=== PATIENT | female | born 1975 | race African-American/Black ===

== ENCOUNTER 2018-01-08 07:45 | Observation (INO) ==
[2018-01-08] MEDS ORDERED: ASPIRIN ONE (08:03)
[2018-01-08] MEDS ORDERED: NITROSTAT SL ONE (08:03)
[2018-01-08] MEDS: ASPIRIN PO SCH (08:10)
[2018-01-08] MEDS: NITROSTAT SL PRN ×3 (08:13→08:22)
--- NOTE | 2018-01-08 08:19 | RAD ---
HISTORY: Right-sided chest pain that started this morning. Study: AP portable chest Comparison: None Findings: The lungs are clear. The heart size is normal. No acute bony abnormalities are identified. IMPRESSION: 1. No radiographic evidence of acute cardiopulmonary disease. Reported By:
[2018-01-08 08:23] LABS: BASOPHILS # (AUTO) 0.1 X10^3/uL (0.0-0.1); BASOPHILS % (AUTO) 1.5 % (0.2-1.0); EOSINOPHILS # (AUTO) 0.1 x10^3/uL (0.0-0.2); EOSINOPHILS % (AUTO) 2.7 % (0.9-2.9); HEMATOCRIT 35.9 % (36.0-47.0); HEMOGLOBIN 11.5 g/dL (12.0-16.0); LYMPHOCYTES # (AUTO) 2.3 X10^3/uL (1.3-2.9); LYMPHOCYTES % (AUTO) 40.7 % (21.0-51.0); MEAN CORPUSCULAR HEMOGLOBIN 22.2 pg (27.0-34.0); MEAN CORPUSCULAR VOLUME 69.3 fL (80.0-100.0); MEAN PLATELET VOLUME 9.9 fL (7.4-11.0); MONOCYTES # (AUTO) 0.5 x10^3/uL (0.3-0.8); MONOCYTES % (AUTO) 8.6 % (0.0-13.0); NEUTROPHILS # (AUTO) 2.6 x10^3/uL (2.2-4.8); NEUTROPHILS % (AUTO) 46.5 % (42.0-75.0); PLATELET COUNT 242 X10^3/uL (150.0-450.0); RED BLOOD COUNT 5.18 X10^6/uL (3.5-5.4); RED CELL DISTRIBUTION WIDTH 15.8 % (11.6-16.5); WHITE BLOOD COUNT 5.5 X10^3/uL (3.6-10.0)
--- NOTE | 2018-01-08 08:29 | DR.CP ---
HPI - Time Seen Time seen: 08:00 - PCP Primary Care Physician: ERNESTO - Complaint Chief Complaint Doctor Comments: Intermittent retrosternal c/p onset briefly yesterday and resolved. She had been at work this morning when it came back on. She can't adquately describe it. She characterised it as sharp when speaking with me but had informed the nurse it was pressure like. She admits to SOB but denies N/V, diaporesis or palpitations. Chief Complaint:: PT C/O RT SIDED CHEST PAIN THAT STARTED THIS AM. PT STATES SHE HAD THIS SAME PAIN YESTERDAY THAT WENT AWAY. PT STATES SHE THINKS THE PAIN FEELS LIKE PRESSURE, BUT DENIES ANY RADIATION OF PAIN. PT STATES THE PAIN COMES AND GOES - Reviewed Nurses Notes Review: Yes - Source History Provided: Patient - Mode of Arrival Mode of Arrival: Ambulatory - Timing Onset of Chief Complaint: 01/08/18 PMH - PMH Past Medical History: Yes Past Medical History: Anxiety, Depression, Hypertension Past Surgical History: Yes Surgical History: Cholecystectomy - Family History History of Family Medical Conditions: No - Social History Does any household member use tobacco: No Alcohol Use: None Do you use any recreational Drugs:: No Lives With: Family Lives Where: Home - infectious screening In the last 2 months have you had wt loss of >10#?: NO Have you had fever, night sweats or hemotysis?: No Have you traveled outside the country in the last 6 months?: No Isolation: Standard ROS - Review of Systems Constitutional: No Symptoms Reported Eyes: No Symptoms Reported ENTM: No Symptoms Reported Respiratoy: No Symptoms Reported Cardiovascular: Chest Pain Gastrointestinal/Abdominal: No Symptoms Reported Genitourinary: No Symptoms Reported Neurological: No Symptoms Reported Musculoskeletal: No Symptoms Reported Integumentary: No Symptoms Reported Hematologic/Lymphatic: No Symptoms Reported Endocrine: No Symptoms Reported Psychiatric: No Symptoms Reported All Other Systems: Reviewed and Negative PE - General Limitations: No Limitations General Appearance: Alert, In No Apparent Distress, Anxious, Other (crying) - Head Head Exam: Normal Inspection - Eyes Eye exam: Normal Appearance - ENT ENT Exam: Normal Exam - Chest Chest Inspection: Normal Inspection - Respiratory Respiratory Exam: Normal Lung Sounds Bilat - Cardiovascular Cardiovascular Exam: Regular Rate, Normal Rhythm, Normal Heart Sounds, +S1, +S2 Pulse: Normal Edema: Normal - Abdominal Exam Abdominal Exam: Normal Inspection, Normal Bowel Sounds, Soft - Extremities Extremities Exam: Normal Inspection - Back Back Exam: Normal Inspection - Neurologic Neurological Exam: Alert, Oriented X3 - Psychiatric Psychiatric Exam: Normal Affect, Normal Mood - Skin Skin Exam: Warm, Dry, Intact, Normal Color - Vitals Vitals: Temperature 97.9 F Pulse Rate [Right Radial] 100 Pulse Rate 100 Respiratory Rate 22 Blood Pressure [Right Arm] 174/106 Blood Pressure 220/130 O2 Sat by Pulse Oximetry 99 Course - Reevaluation 1st: Improved ROR - Labs Reviewed Result Diagrams: 01/08/18 08:10 01/08/18 08:10 - XRAY XRAY Interpreted by: Self (NAD) - EKG Rate: 86 [place]: Normal Rhythm: NSR Block: None Hypertrophy: LVH - Labs Reviewed Laboratory: WBC 5.5 X10^3/uL (3.6-10.0) 01/08/18 08:10 RBC 5.18 X10^6/uL (3.5-5.4) 01/08/18 08:10 Hgb 11.5 g/dL (12.0-16.0) L 01/08/18 08:10 Hct 35.9 % (36.0-47.0) L 01/08/18 08:10 MCV 69.3 fL (80.0-100.0) L 01/08/18 08:10 MCH 22.2 pg (27.0-34.0) L 01/08/18 08:10 MCHC 32.0 g/dL (33.0-35.0) L 01/08/18 08:10 RDW 15.8 % (11.6-16.5) 01/08/18 08:10 Plt Count 242 X10^3/uL (150.0-450.0) 01/08/18 08:10 Plt Count Comment Adequate (ADEQUATE) 01/08/18 08:10 MPV 9.9 fL (7.4-11.0) 01/08/18 08:10 Neut % (Auto) 46.5 % (42.0-75.0) 01/08/18 08:10 Lymph % (Auto) 40.7 % (21.0-51.0) 01/08/18 08:10 [place] % (Auto) 8.6 % (0.0-13.0) 01/08/18 08:10 Eos % (Auto) 2.7 % (0.9-2.9) 01/08/18 08:10 Baso % (Auto) 1.5 % (0.2-1.0) H 01/08/18 08:10 Neut # (Auto) 2.6 x10^3/uL (2.2-4.8) 01/08/18 08:10 Lymph # (Auto) 2.3 X10^3/uL (1.3-2.9) 01/08/18 08:10 [place] # (Auto) 0.5 x10^3/uL (0.3-0.8) 01/08/18 08:10 Eos # (Auto) 0.1 x10^3/uL (0.0-0.2) 01/08/18 08:10 Baso # (Auto) 0.1 X10^3/uL (0.0-0.1) 01/08/18 08:10 Absolute Nucleated RBC 0.0 /100WBC 01/08/18 08:10 Plt Morphology Comment Normal (NORMAL) 01/08/18 08:10 RBC Morphology Abnormal (NORMAL) A 01/08/18 08:10 Hypochromasia 1+ A 01/08/18 08:10 INR Target Range - 01/08/18 08:10 INR 1.01 (0.8-1.3) 01/08/18 08:10 APTT 28.6 SECONDS (22.9-36.5) 01/08/18 08:10 PTT Comment - 01/08/18 08:10 - Diagnosis Discharge Problem: Malignant hypertensive urgency, Chest pain - Discharge Plan Condition: Stable - Follow ups/Referrals Follow ups/Referrals: ESDRAS OROZCO [Primary Care Provider] - 3 days - Instructions
[2018-01-08 08:32] LABS: HYPOCHROMASIA 1+; PLATELET MORPHOLOGY COMMENT NORMAL (NORMAL)
[2018-01-08 08:49] LABS: ALANINE AMINOTRANSFERASE 19 Units/L (12-78); ALBUMIN 3.7 g/dL (3.4-5.0); ALKALINE PHOSPHATASE 68 Units/L (46-116); ASPARTATE AMINO TRANSFERASE 15 Units/L (15-37); BLOOD UREA NITROGEN 8 mg/dL (7-18); CALCIUM 8.5 mg/dL (8.5-10.1); CARBON DIOXIDE 25.8 mmol/L (21-32); CHLORIDE 103 mmol/L (98-107); CKMB % 0.9 % (<4); CREATINE KINASE 220 Units/L (26-192); CREATINE KINASE MB 1.9 ng/mL (0-4.0); CREATININE 0.72 mg/dL (0.55-1.02); SODIUM 140 mmol/L (136-145); TOTAL PROTEIN 7.9 g/dL (6.4-8.2); TROPONIN I < 0.02 ng/mL (0-1.5); eGFR NON BLACK RACES > 60 (>60)
[2018-01-08] MEDS ORDERED: LOPRESSOR INJ 5 MG AMP IVP ONE (08:53)
[2018-01-08] MEDS ORDERED: LOPRESSOR INJ 5 MG AMP ONE (08:56)
[2018-01-08] MEDS ORDERED: K-LYTE EFFERVESCENT ONE (09:04)
[2018-01-08 09:31] LABS: BILIRUBIN,URINE NEGATIVE (NEGATIVE); BLOOD/HEMOGLOBIN,URINE 5+ (NEGATIVE); GLUCOSE, URINE NEGATIVE (NEGATIVE); KETONES,URINE NEGATIVE (NEGATIVE); LEUKOCYTE ESTERASE ,URINE NEGATIVE (NEGATIVE); NITRITES,URINE NEGATIVE (NEGATIVE); PROTEIN,URINE NEGATIVE (NEGATIVE); UROBILINOGEN,URINE NORMAL (NORMAL)
[2018-01-08 09:35] LABS: APPEARANCE,URINE CLEAR (CLEAR); COLOR,URINE YELLOW (YELLOW)
[2018-01-08 09:36] LABS: BACTERIA,URINE NEGATIVE /HPF (NEGATIVE); SQUAMOUS EPITHELIAL CELL,UR RARE /HPF (NEGATIVE)
[2018-01-08] MEDS ORDERED: CATAPRES TAB 0.1 MG PO ONE (09:53)
[2018-01-08] MEDS ORDERED: CATAPRES TAB 0.1 MG ONE (09:55)
[2018-01-08 12:11] LABS: BLOOD UREA NITROGEN 6 mg/dL (7-18); CALCIUM 8.4 mg/dL (8.5-10.1); CARBON DIOXIDE 29.5 mmol/L (21-32); CHLORIDE 103 mmol/L (98-107); CREATININE 0.71 mg/dL (0.55-1.02); SODIUM 139 mmol/L (136-145); eGFR NON BLACK RACES > 60 (>60)
[2018-01-08 13:46] VITALS: BMI 30.9
[2018-01-08] MEDS: NS + KCL 20 MEQ/L 1,000 ML IV SCH (13:51)
[2018-01-08 15:15] LABS: CKMB % 0.9 % (<4); CREATINE KINASE 175 Units/L (26-192); CREATINE KINASE MB 1.6 ng/mL (0-4.0); TROPONIN I < 0.02 ng/mL (0-1.5)
[2018-01-08] MEDS: CATAPRES TAB 0.2 MG PO SCH (20:57)
[2018-01-08 21:10] LABS: CKMB % 0.8 % (<4); CREATINE KINASE MB 1.1 ng/mL (0-4.0); TROPONIN I 0.02 ng/mL (0-1.5)
[2018-01-09] MEDS: NS + KCL 20 MEQ/L 1,000 ML IV SCH (02:30)
[2018-01-09 05:14] LABS: BASOPHILS % (AUTO) 0.8 % (0.2-1.0); EOSINOPHILS # (AUTO) 0.1 x10^3/uL (0.0-0.2); EOSINOPHILS % (AUTO) 2.7 % (0.9-2.9); HEMATOCRIT 30.9 % (36.0-47.0); HEMOGLOBIN 9.8 g/dL (12.0-16.0); LYMPHOCYTES # (AUTO) 2.3 X10^3/uL (1.3-2.9); MEAN CORPUSCULAR HEMOGLOBIN 22.5 pg (27.0-34.0); MEAN CORPUSCULAR HGB CONC 31.8 g/dL (33.0-35.0); MEAN CORPUSCULAR VOLUME 70.8 fL (80.0-100.0); MONOCYTES # (AUTO) 0.3 x10^3/uL (0.3-0.8); MONOCYTES % (AUTO) 7.5 % (0.0-13.0); NEUTROPHILS # (AUTO) 1.6 x10^3/uL (2.2-4.8); PLATELET COUNT 194 X10^3/uL (150.0-450.0); RED BLOOD COUNT 4.36 X10^6/uL (3.5-5.4); WHITE BLOOD COUNT 4.5 X10^3/uL (3.6-10.0)
[2018-01-09 05:16] LABS: BLOOD UREA NITROGEN 9 mg/dL (7-18); CALCIUM 7.8 mg/dL (8.5-10.1); CHLORIDE 107 mmol/L (98-107); CREATININE 0.66 mg/dL (0.55-1.02); SODIUM 140 mmol/L (136-145); eGFR NON BLACK RACES > 60 (>60)
[2018-01-09 05:42] LABS: HYPOCHROMASIA 1+; PLATELET MORPHOLOGY COMMENT NORMAL (NORMAL)
[2018-01-09] MEDS ORDERED: ZESTRIL TAB 40 MG PO SCH (09:00)
[2018-01-09] MEDS ORDERED: K-LYTE EFFERVESCENT PO ONE (09:04)
[2018-01-09] MEDS: CATAPRES TAB 0.2 MG PO SCH (09:29)
[2018-01-09] MEDS: ASPIRIN PO SCH (09:29)
[2018-01-09] MEDS ORDERED: ZESTRIL TAB 40 MG PO ONE (09:52)
[2018-01-09 13:54] VITALS: BP 173/89
== END 2018-01-09 14:10 | disposition home or self-care (01) ==
LOC: MED/SURG 07:48 → ER 07:48 → MED/SURG 13:04
PROVIDERS: ADMIT Internal Medicine; ATTEND Internal Medicine
DX: R94.31 Abnormal electrocardiogram [ECG] [EKG]; F41.8 Other specified anxiety disorders; F32.89 Other specified depressive episodes; R07.89 Other chest pain; E87.6 Hypokalemia; I16.0 Hypertensive urgency; R06.02 Shortness of breath; Z79.899 Other long term (current) drug therapy
CPT/HCPCS: 36415; 71010; 71045; 80048; 80053; 80307; 81001; 82550; 82553; 83735; 84484; 85025; 85378; 85610; 85730; 93005; 93010; 94760; 96365; 96374; 99284; A4222; G0378; G0434; J3490; J8499

== ENCOUNTER 2020-01-01 16:17 | Inpatient (IN) ==
[2020-01-01] MEDS ORDERED: NORMODYNE INJ 100 MG VIAL ONE (17:20)
[2020-01-01] MEDS ORDERED: TORADOL 30 MG VIAL ONE (17:20)
[2020-01-01] MEDS ORDERED: TORADOL 30 MG VIAL IVP ONE (17:22)
[2020-01-01] MEDS ORDERED: LABETALOL HCL IVP ONE (17:22)
[2020-01-01] MEDS ORDERED: NS 1000 ML 1,000 ML IV ONE (17:28)
--- NOTE | 2020-01-01 17:28 | DR.EXTPAIN ---
HPI Time seen Time Seen by Provider: 01/01/20 17:05 PCP Primary Care Physician: dona HPI Comment HPI Comment: According to pt she was pos for covid 19 ,2 weeks ago. Was retested and the results are pending.pt has noticed that she has bene experienci ng increased headache , fever and chills, malaise and fatigue. here to have her self checked .No one at home with similar problem .has had no chest pain or tightness .some coughing but some shortness of breath .no orthopnea, PND or swelling around her ankles .no problem with vision Complaint/Symptoms Chief Complaint Doctor Comments: fever and chills Chief Complaint:: pt stated she has been positive for covid, for 2 weeks . stated she was checked again two days ago but the test has not come back yet. said she has been having headaches, highblood pressure with fever and chills. COVID-19 Coronavirus risk:travel/contact w/high risk person: Yes Has patient experienced Coronavirus symptoms: Yes Coronavirus symptoms experienced: Fever and Coughing Source History Provided: Patient Mode of arrival Mode of Arrival: Ambulatory Timing Onset of Chief Complaint: 12/18/19 PMH PMH Past Medical History: Yes Past Medical History: Hypertension Past Surgical History: Yes Surgical History: Cholecystectomy and DELIVERY ROOM [employer] Surgery Family History History of Family Medical Conditions: Yes Family Medical History: Hypertension Social History Does patient currently use any type of tobacco product: No Have you used tobacco products in the last 12 months: No Type of Tobacco Use: None Does any household member use tobacco: No Alcohol Use: None Do you use any recreational Drugs:: No Lives With: Family Lives Where: Home Travel Risk Coronavirus risk:travel/contact w/high risk person: Yes Has patient experienced Coronavirus symptoms: Yes Coronavirus symptoms experienced: Fever and Coughing Infectious screening In the last 2 months have you had wt loss of >10#?: NO Have you had fever, night sweats or hemotysis?: No Have you traveled outside the country in the last 6 months?: No Isolation: Droplet ROS Review of Systems Constitutional: No Symptoms Reported, Chills, Diaphoresis, Fever, Malaise, Weakness and Fatigue Eyes: No Symptoms Reported ENTM: No Symptoms Reported Respiratoy: No Symptoms Reported, Dry Cough and Short of Breath Cardiovascular: No Symptoms Reported Gastrointestinal/Abdominal: No Symptoms Reported Genitourinary: No Symptoms Reported Neurological: No Symptoms Reported and Headache Musculoskeletal: No Symptoms Reported Integumentary: No Symptoms Reported Hematologic/Lymphatic: No Symptoms Reported Endocrine: No Symptoms Reported Psychiatric: No Symptoms Reported All Other Systems: Reviewed and Negative PE Vital Signs Vitals: Temperature 101.9 F Pulse Rate 106 Respiratory Rate 16 Blood Pressure [Right Arm] 150/83 Blood Pressure 202/119 O2 Sat by Pulse Oximetry 96 General Limitations: No Limitations General Appearance: Alert and Lethargic Eyes Eye exam: Normal Appearance ENT ENT Exam: Mucous Membranes Dry Neck Neck Exam: Normal Inspection and Full ROM Respiratory Respiratory Exam: Bilateral: Rales Cardiovascular Cardiovascular Exam: Tachycardia, +S1 and +S2 Abdominal Exam Abdominal Exam: Normal Inspection Extremities Extremities Exam: Normal Inspection Back Back Exam: Normal Inspection Neurological Neurological Exam: Alert Psychiatric Psychiatric Exam: Anxious Skin Skin Exam: Warm MDM Differential Diagnosis Differential Diagnosis: Other (hypertensive urgency,covid19 infection,fever ,dehydration,tacchycardia ,headache ) ROR Labs Reviewed Result Diagrams: 01/01/20 17:41 01/01/20 17:41 Laboratory: WBC 3.3 X10^3/uL (3.6-10.0) L 01/01/20 17:41 RBC 5.42 X10^6/uL (3.5-5.4) H 01/01/20 17:41 Hgb 11.5 g/dL (12.0-16.0) L 01/01/20 17:41 Hct 35.9 % (36.0-47.0) L 01/01/20 17:41 MCV 66.2 fL (80.0-100.0) L 01/01/20 17:41 MCH 21.3 pg (27.0-34.0) L 01/01/20 17:41 MCHC 32.1 g/dL (33.0-35.0) L 01/01/20 17:41 RDW 17.6 % (11.6-16.5) H 01/01/20 17:41 Plt Count 186 X10^3/uL (150.0-450.0) 01/01/20 17:41 Plt Count Comment Adequate (ADEQUATE) 01/01/20 17:41 MPV 9.5 fL (7.4-11.0) 01/01/20 17:41 Neut % (Auto) 60.1 % (42.0-75.0) 01/01/20 17:41 Lymph % (Auto) 27.5 % (21.0-51.0) 01/01/20 17:41 [place] % (Auto) 12.0 % (0.0-13.0) 01/01/20 17:41 Eos % (Auto) 0.1 % (0.9-2.9) L 01/01/20 17:41 Baso % (Auto) 0.3 % (0.2-1.0) 01/01/20 17:41 Neut # (Auto) 2.0 x10^3/uL (2.2-4.8) L 01/01/20 17:41 Lymph # (Auto) 0.9 X10^3/uL (1.3-2.9) L 01/01/20 17:41 [place] # (Auto) 0.4 x10^3/uL (0.3-0.8) 01/01/20 17:41 Eos # (Auto) 0.0 x10^3/uL (0.0-0.2) 01/01/20 17:41 Baso # (Auto) 0.0 X10^3/uL (0.0-0.1) 01/01/20 17:41 Absolute Nucleated RBC 0.0 /100WBC 01/01/20 17:41 Plt Morphology Comment Normal (NORMAL) 01/01/20 17:41 RBC Morphology Abnormal (NORMAL) A 01/01/20 17:41 Hypochromasia 2+ A 01/01/20 17:41 Microcytosis 1+ A 01/01/20 17:41 Sodium 133 mmol/L (136-145) L 01/01/20 17:41 Corrected Sodium TNP 01/01/20 17:41 Potassium 3.1 mmol/L (3.5-5.1) L 01/01/20 17:41 Chloride 98 mmol/L (98-107) 01/01/20 17:41 Carbon Dioxide 26.3 mmol/L (21-32) 01/01/20 17:41 BUN 10 mg/dL (7-18) 01/01/20 17:41 Creatinine 0.89 mg/dL (0.55-1.02) 01/01/20 17:41 Est GFR (MDRD) Af Amer > 60 (>60) 01/01/20 17:41 Est GFR (MDRD) Non-Af > 60 (>60) 01/01/20 17:41 Glucose 97 mg/dL (65-99) 01/01/20 17:41 Lactic Acid 0.9 mmol/L (0.4-2.0) 01/01/20 17:41 Calcium 8.3 mg/dL (8.5-10.1) L 01/01/20 17:41 Corrected Calcium TNP 01/01/20 17:41 Total Bilirubin 0.30 mg/dL (0.2-1.0) 01/01/20 17:41 AST 17 Units/L (15-37) 01/01/20 17:41 ALT 19 Units/L (12-78) 01/01/20 17:41 Alkaline Phosphatase 52 Units/L (46-116) 01/01/20 17:41 Total Protein 8.3 g/dL (6.4-8.2) H 01/01/20 17:41 Albumin 3.6 g/dL (3.4-5.0) 01/01/20 17:41 Globulin 4.7 g/dL (2.5-4.5) H 01/01/20 17:41 Albumin/Globulin Ratio 0.8 Ratio (1.1-2.1) L 01/01/20 17:41 Other Results Comments: labs reviewed and discussed with patient cxr No acute pathology Opioid Opioid Risk Tool Age ([place] box if 16-45): Yes History of Preadolescent Sexual Abuse: No Total: 1 Total Score Risk Category: Low Risk Copyright: Marques LANDAVERDE predicting aberrant behaviors
[2020-01-01] MEDS ORDERED: NORMODYNE INJ 100 MG VIAL IVP ONE (17:49)
[2020-01-01 17:58] LABS: BASOPHILS % (AUTO) 0.3 % (0.2-1.0); EOSINOPHILS % (AUTO) 0.1 % (0.9-2.9); HEMATOCRIT 35.9 % (36.0-47.0); HEMOGLOBIN 11.5 g/dL (12.0-16.0); LYMPHOCYTES # (AUTO) 0.9 X10^3/uL (1.3-2.9); LYMPHOCYTES % (AUTO) 27.5 % (21.0-51.0); MEAN CORPUSCULAR HEMOGLOBIN 21.3 pg (27.0-34.0); MEAN CORPUSCULAR HGB CONC 32.1 g/dL (33.0-35.0); MEAN CORPUSCULAR VOLUME 66.2 fL (80.0-100.0); MEAN PLATELET VOLUME 9.5 fL (7.4-11.0); MONOCYTES # (AUTO) 0.4 x10^3/uL (0.3-0.8); NEUTROPHILS % (AUTO) 60.1 % (42.0-75.0); PLATELET COUNT 186 X10^3/uL (150.0-450.0); RED BLOOD COUNT 5.42 X10^6/uL (3.5-5.4); RED CELL DISTRIBUTION WIDTH 17.6 % (11.6-16.5); WHITE BLOOD COUNT 3.3 X10^3/uL (3.6-10.0)
[2020-01-01] MEDS ORDERED: NORMODYNE INJ 20 MG VIAL IVP ONE (17:58)
--- NOTE | 2020-01-01 18:01 | RAD ---
HISTORYFEVER, COUGHSTUDYCHEST, PA/LAT ADULTCOMPARISONNovember 2019FINDINGSThe trachea is midline. The cardiac silhouette is stable in size. The lungs are clear without focal infiltrate or effusion. The bony thorax is unremarkable.IMPRESSIONNo acute cardiopulmonary disease.Electronically signed by: VARSHA PRITCHARD (January 01, 2020 18:00:17)
[2020-01-01 18:07] LABS: ALANINE AMINOTRANSFERASE 19 Units/L (12-78); ALBUMIN 3.6 g/dL (3.4-5.0); ALKALINE PHOSPHATASE 52 Units/L (46-116); ASPARTATE AMINO TRANSFERASE 17 Units/L (15-37); BLOOD UREA NITROGEN 10 mg/dL (7-18); CALCIUM 8.3 mg/dL (8.5-10.1); CARBON DIOXIDE 26.3 mmol/L (21-32); CHLORIDE 98 mmol/L (98-107); CREATININE 0.89 mg/dL (0.55-1.02); SODIUM 133 mmol/L (136-145); TOTAL PROTEIN 8.3 g/dL (6.4-8.2); eGFR NON BLACK RACES > 60 (>60)
[2020-01-01] MEDS ORDERED: TYLENOL 325 MG TAB PO ONE ×2 (18:08→18:09)
[2020-01-01 18:10] LABS: LACTIC ACID 0.9 mmol/L (0.4-2.0)
[2020-01-01 18:34] LABS: PLATELET MORPHOLOGY COMMENT NORMAL (NORMAL)
[2020-01-01 18:35] LABS: HYPOCHROMASIA 2+; MICROCYTOSIS 1+
[2020-01-01] MEDS ORDERED: NS 1000 ML 1,000 ML ONE (19:46)
[2020-01-01] MEDS ORDERED: K-DUR TAB 20 MEQ PO ONE ×2 (20:22→23:06)
[2020-01-01] MEDS: K-DUR TAB 20 MEQ PO SCH (20:34)
[2020-01-01] MEDS ORDERED: NORVASC TAB 5 MG PO ONE (23:08)
[2020-01-01] MEDS: FLONASE NASAL SPRAY ENOSTRIL SCH (23:34)
[2020-01-02] MEDS ORDERED: NORCO 5/325 MG TAB ONE (00:55)
[2020-01-02] MEDS: NORCO 5/325 MG TAB PO PRN ×3 (00:57→22:37)
[2020-01-02 02:04] VITALS: BMI 35.8
[2020-01-02] MEDS ORDERED: TYLENOL 325 MG TAB PO ONE (04:07)
[2020-01-02] MEDS: TYLENOL 325 MG TAB PO PRN ×2 (04:15→10:33)
[2020-01-02] MEDS ORDERED: CATAPRES TAB 0.1 MG PO ONE (04:20)
[2020-01-02] MEDS ORDERED: CATAPRES TAB 0.1 MG ONE (04:22)
[2020-01-02 05:23] LABS: BASOPHILS % (AUTO) 0.5 % (0.2-1.0); EOSINOPHILS % (AUTO) 0.1 % (0.9-2.9); HEMOGLOBIN 11.7 g/dL (12.0-16.0); LYMPHOCYTES % (AUTO) 28.7 % (21.0-51.0); MEAN CORPUSCULAR HEMOGLOBIN 21.1 pg (27.0-34.0); MEAN CORPUSCULAR HGB CONC 31.6 g/dL (33.0-35.0); MEAN CORPUSCULAR VOLUME 66.8 fL (80.0-100.0); MONOCYTES # (AUTO) 0.4 x10^3/uL (0.3-0.8); MONOCYTES % (AUTO) 10.2 % (0.0-13.0); NEUTROPHILS # (AUTO) 2.2 x10^3/uL (2.2-4.8); NEUTROPHILS % (AUTO) 60.5 % (42.0-75.0); PLATELET COUNT 184 X10^3/uL (150.0-450.0); RED BLOOD COUNT 5.54 X10^6/uL (3.5-5.4); RED CELL DISTRIBUTION WIDTH 17.9 % (11.6-16.5); WHITE BLOOD COUNT 3.6 X10^3/uL (3.6-10.0)
[2020-01-02 05:34] LABS: ALANINE AMINOTRANSFERASE 17 Units/L (12-78); ALBUMIN 3.5 g/dL (3.4-5.0); ALKALINE PHOSPHATASE 51 Units/L (46-116); ASPARTATE AMINO TRANSFERASE 22 Units/L (15-37); BLOOD UREA NITROGEN 8 mg/dL (7-18); CARBON DIOXIDE 25.5 mmol/L (21-32); CHLORIDE 100 mmol/L (98-107); CREATININE 0.92 mg/dL (0.55-1.02); SODIUM 134 mmol/L (136-145); TOTAL PROTEIN 8.2 g/dL (6.4-8.2); eGFR NON BLACK RACES > 60 (>60)
[2020-01-02 05:39] LABS: ANISOCYTOSIS SL; MICROCYTOSIS 1+; PLATELET MORPHOLOGY COMMENT NORMAL (NORMAL)
[2020-01-02] MEDS: MILK OF MAGNESIA PO SCH (08:13)
[2020-01-02] MEDS: K-DUR TAB 20 MEQ PO SCH (08:13)
[2020-01-02] MEDS: FLONASE NASAL SPRAY ENOSTRIL SCH (08:24)
[2020-01-02] MEDS ORDERED: NORVASC TAB 5 MG PO SCH (09:00)
--- NOTE | 2020-01-02 10:52 | DR.H&P ---
H&P - History & Physical for Day of: H&P Date: 01/01/20 - Chief Complaint Chief Complaint: FEVER, CHILLS, HX COVID 19 POSITIVE - History of Present Illness History of Present Illness: PT IS 44F ER ADMISSION WITH CO HX OF COVID 19 POSITIVE. PT CO FEVER AND CHILLS AND FATIGUE. DENIES ANY CHEST PAIN AT THIS TIME. PT REPORTS HYPERTENSION. PT WAS HYPERTENSIVE IN ER. PT RAPID COVID IN ER NEGATIVE. PT WAS FEBRILE ON ARRIVAL. PT ADMITTED TO ISOLATION UNIT, PLAN TO EVALUATE AND TREAT ACUTE ILLNESS. - Past Medical History Past Medical History: Hypertension - Past Surgical History Surgical History: Cholecystectomy - Family History Family Medical History: Diabetes Mellitus - Social History Does patient currently use any type of tobacco product: No Have you used tobacco products in the last 12 months: No Type of Tobacco Use: None Does any household member use tobacco: No Alcohol Use: None Drug Use: None - Medications Home Medications: No Known Drug Allergies Allergy (Verified 01/01/20 16:21) CONTINUE taking the following medications alprazolam 0.25 mg PO BID PRN 01/01/20 [History] venlafaxine 75 mg PO DAILY 01/01/20 [History] - Review of Systems Constitutional: Fever, Chills, Sweats, Malaise Eyes: No Symptoms Reported ENT: No Symptoms Reported Respiratory: No Symptoms Reported Cardiovascular: No Symptoms Reported Gastrointestinal: Nausea Genitourinary: No Symptoms Reported Musculoskeletal: No Symptoms Reported Skin: No Symptoms Reported Neurological: No Symptoms Reported - Physical Exam Vital Signs: Temperature 99.7 F Pulse Rate [Right Radial] 95 Pulse Rate 106 Respiratory Rate 19 Blood Pressure [Right Arm] 167/88 Blood Pressure 202/119 O2 Sat by Pulse Oximetry 99 Oriented: Normal Eyes: Normal Ear: Normal Nose: Normal Throat: Normal Respiratory: RLL Diminished, LLL Diminished Cardiovascular: Normal : Normal Auscultation: Bowel Sounds: Normal Palpation: Normal Tenderness: Normal Skin: Normal, Maculopapular Psychiatric: Anxiety Affect: Anxious Speech Pattern: Clear, Appropriate - Assessment/Plan (1) Acute hypokalemia Status: Acute Plan: ADMIT, FLU, STREP, RSV AND REPEAT COVID ON ADMISSION. BLOOD URINE AND SPUTUM CULTURE. BP CONTROL, CXR ON ADMISSION, ABG ON ADMISSION. TELEMETRY, SUPPLEMENTAL O2. GENTLE IV HYDRATION, ELECTROLYTE REPLACEMENT, BP CONTROL. VERIFY HOME MEDICATION. (2) Fever Status: Acute (3) HTN (hypertension) Status: Acute (4) COVID-19 Status: Acute - Allergies Allergies/Adverse Reactions: Allergies Allergy/AdvReac Type Severity Reaction Status Date / Time No Known Drug Allergies Allergy Verified 01/01/20 16:21
[2020-01-02 11:17] LABS: ABG HCO3 21.6 mmol/L (22-26)
[2020-01-02 11:18] LABS: ABG ALLEN TEST POS
[2020-01-02] MEDS ORDERED: NORVASC TAB 5 MG ONE (11:59)
[2020-01-02] MEDS: NORVASC TAB 10 MG PO SCH (12:00)
[2020-01-02 12:21] LABS: RSV AG DETECTION NEGATIVE (NEGATIVE)
[2020-01-02] MEDS ORDERED: FIORICET TAB PO ONE (13:45)
[2020-01-02] MEDS: LOVENOX INJ 40 MG SYR SC SCH (13:56)
[2020-01-02] MEDS ORDERED: TORADOL 30 MG VIAL IVP ONE (16:09)
[2020-01-02] MEDS ORDERED: TORADOL 30 MG VIAL ONE (16:22)
[2020-01-02] MEDS: COLACE CAP 100 MG PO SCH (20:39)
[2020-01-03] MEDS: TYLENOL 325 MG TAB PO PRN ×2 (01:11→08:05)
[2020-01-03] MEDS: FIORICET TAB PO PRN ×2 (05:12→22:11)
--- NOTE | 2020-01-03 07:37 | RAD ---
HISTORYshortness of breathSTUDYCHEST, 1 VIEWCOMPARISONTwo-view chest January 01, 2020.FINDINGSThe trachea is midline. The cardiac silhouette is unremarkable . The lungs are clear without focal infiltrate or effusion. The bony thorax is unremarkable.IMPRESSIONNo acute cardiopulmonary disease and no change from January 01, 2020 prior film.Electronically signed by: SALMA BUI (Jan 03, 2020 07:36:26)
[2020-01-03] MEDS: MILK OF MAGNESIA PO SCH (08:06)
[2020-01-03] MEDS: LOVENOX INJ 40 MG SYR SC SCH (08:06)
[2020-01-03] MEDS: NORVASC TAB 10 MG PO SCH (08:06)
[2020-01-03] MEDS: FLONASE NASAL SPRAY ENOSTRIL SCH (08:06)
[2020-01-03] MEDS: K-DUR TAB 20 MEQ PO SCH (08:07)
[2020-01-03 08:15] LABS: BASOPHILS % (AUTO) 0.5 % (0.2-1.0); HEMOGLOBIN 11.4 g/dL (12.0-16.0); LYMPHOCYTES # (AUTO) 0.8 X10^3/uL (1.3-2.9); LYMPHOCYTES % (AUTO) 27.2 % (21.0-51.0); MEAN CORPUSCULAR HEMOGLOBIN 21.3 pg (27.0-34.0); MEAN CORPUSCULAR HGB CONC 32.5 g/dL (33.0-35.0); MEAN CORPUSCULAR VOLUME 65.4 fL (80.0-100.0); MONOCYTES # (AUTO) 0.2 x10^3/uL (0.3-0.8); MONOCYTES % (AUTO) 7.9 % (0.0-13.0); NEUTROPHILS # (AUTO) 1.9 x10^3/uL (2.2-4.8); NEUTROPHILS % (AUTO) 64.4 % (42.0-75.0); PLATELET COUNT 177 X10^3/uL (150.0-450.0); RED BLOOD COUNT 5.35 X10^6/uL (3.5-5.4); RED CELL DISTRIBUTION WIDTH 17.6 % (11.6-16.5)
[2020-01-03] MEDS ORDERED: NS 250 ML IV 250 ML IV PRN (08:44)
[2020-01-03] MEDS: ZITHROMAX INJ 500 MG VIAL 500 MG in NS 250 ML IV 250 ML IV SCH (08:54)
[2020-01-03] MEDS: ZESTRIL TAB 5 MG PO SCH (08:54)
[2020-01-03 08:57] LABS: ALANINE AMINOTRANSFERASE 49 Units/L (12-78); ALBUMIN 3.5 g/dL (3.4-5.0); ALKALINE PHOSPHATASE 77 Units/L (46-116); ASPARTATE AMINO TRANSFERASE 51 Units/L (15-37); BLOOD UREA NITROGEN 8 mg/dL (7-18); CALCIUM 8.2 mg/dL (8.5-10.1); CARBON DIOXIDE 23.3 mmol/L (21-32); CHLORIDE 98 mmol/L (98-107); CREATININE 0.82 mg/dL (0.55-1.02); LACTATE DEHYDROGENASE 504 Units/L (81-234); SODIUM 131 mmol/L (136-145); TOTAL PROTEIN 8.3 g/dL (6.4-8.2); eGFR NON BLACK RACES > 60 (>60)
[2020-01-03 09:11] LABS: HYPOCHROMASIA 2+; MICROCYTOSIS 1+; PLATELET MORPHOLOGY COMMENT NORMAL (NORMAL)
[2020-01-03] MEDS ORDERED: ZOFRAN INJ 4 MG VIAL IVP PRN (09:40)
[2020-01-03] MEDS ORDERED: ZOFRAN INJ 4 MG VIAL ONE (09:42)
[2020-01-03] MEDS: MOTRIN TAB 800 MG PO PRN ×2 (10:29→23:30)
[2020-01-03] MEDS: COLACE CAP 100 MG PO SCH (21:35)
[2020-01-04 05:38] LABS: MONOCYTES # (AUTO) 0.2 x10^3/uL (0.3-0.8); RED CELL DISTRIBUTION WIDTH 17.9 % (11.6-16.5); WHITE BLOOD COUNT 2.4 X10^3/uL (3.6-10.0)
[2020-01-04 05:45] LABS: BASOPHILS % (AUTO) 0.8 % (0.2-1.0); HEMATOCRIT 34.1 % (36.0-47.0); HEMOGLOBIN 10.8 g/dL (12.0-16.0); LYMPHOCYTES # (AUTO) 0.8 X10^3/uL (1.3-2.9); LYMPHOCYTES % (AUTO) 34.4 % (21.0-51.0); MEAN CORPUSCULAR HGB CONC 31.7 g/dL (33.0-35.0); MEAN CORPUSCULAR VOLUME 66.2 fL (80.0-100.0); MEAN PLATELET VOLUME 11.4 fL (7.4-11.0); MONOCYTES % (AUTO) 9.3 % (0.0-13.0); NEUTROPHILS # (AUTO) 1.3 x10^3/uL (2.2-4.8); NEUTROPHILS % (AUTO) 55.5 % (42.0-75.0); PLATELET COUNT 195 X10^3/uL (150.0-450.0); RED BLOOD COUNT 5.15 X10^6/uL (3.5-5.4)
[2020-01-04 05:46] LABS: ALANINE AMINOTRANSFERASE 35 Units/L (12-78); ALBUMIN 3.3 g/dL (3.4-5.0); ALKALINE PHOSPHATASE 65 Units/L (46-116); ASPARTATE AMINO TRANSFERASE 31 Units/L (15-37); BLOOD UREA NITROGEN 12 mg/dL (7-18); CALCIUM 8.1 mg/dL (8.5-10.1); CARBON DIOXIDE 26.2 mmol/L (21-32); CHLORIDE 99 mmol/L (98-107); COR CA(FOR HYPOALB) 8.7 mg/dL (8.5-10.1); CREATININE 0.98 mg/dL (0.55-1.02); SODIUM 131 mmol/L (136-145); TOTAL PROTEIN 7.7 g/dL (6.4-8.2); eGFR NON BLACK RACES > 60 (>60)
[2020-01-04 06:41] LABS: HYPOCHROMASIA 2+; MICROCYTOSIS 1+; PLATELET MORPHOLOGY COMMENT NORMAL (NORMAL)
--- NOTE | 2020-01-04 07:54 | RAD ---
HISTORYShortness of breathSTUDYCHEST, 1 [id number]/01/2020FINDINGSThe heart is upper limits normal in size. The niesha are normal. The lung jacob are clear. No pleural effusions are identified. Bony thorax is unremarkable.IMPRESSIONNo significant abnormality identifiedElectronically signed by: HAO HAHN (Jan 04, 2020 07:52:30)
[2020-01-04] MEDS: FLONASE NASAL SPRAY ENOSTRIL SCH (08:48)
[2020-01-04] MEDS: K-DUR TAB 20 MEQ PO SCH (08:48)
[2020-01-04] MEDS: LOVENOX INJ 40 MG SYR SC SCH (08:49)
[2020-01-04] MEDS: NORVASC TAB 10 MG PO SCH (08:49)
[2020-01-04] MEDS: MILK OF MAGNESIA PO SCH (08:49)
[2020-01-04] MEDS: ZESTRIL TAB 5 MG PO SCH (08:50)
[2020-01-04] MEDS: ZITHROMAX INJ 500 MG VIAL 500 MG in NS 250 ML IV 250 ML IV SCH (08:50)
--- NOTE | 2020-01-04 10:19 | PCM.PROG ---
Progress Note - Progress Note for Day of Date of Exam: 01/03/20 - Subjective Subjective: WAS ADMITTED FOR FEVER, HX COVID-19, MALAISE, HTN, HYPOKALEMIA, ANEMIA, AND LEUKOPENIA. SHE REPORTS TESTING POSITIVE FOR COVID-19 APPROXIMATELY A MONTH AGO. SHE WAS RETESTED IN OUR OFFICE ON 12/30/19. REPEAT TEST IS NEGATIVE. RAPID TEST THAT WAS OBTAINED IN THE ER IS ALSO NEGATIVE. TODAY, SHE IS ALERT AND ORIENTED, LYING IN BED ON MORNING ROUNDS. SHE CONTINUES WITH COMPLAINTS OF WEAKNESS, NON-PRODUCTIVE COUGH, AND FEVER. SHE DENIES IMPROVEMENT SINCE YESTERDAY. ON EXAMINATION, HEART IS REGULAR IN RATE AND RHYTHM. BILATERAL LUNGS ARE NOTED WITH DIMINISHED LUNG SOUNDS THROUGHOUT. ABDOMEN IS ROUND, SOFT, AND NON-TENDER WITH NORMAL BOWEL SOUNDS NOTED IN ALL QUADRANTS. HER VITALS THIS MORNING ARE: 103.9-052-83-100%NC-138/79. LABS WERE OBTAINED. ABNORMAL LAB VALUES INCLUDE THE FOLLOWING: WBC 3.0, HGB 11.4, HCT 35.0, SODIUM 131, CALCIUM 8.2, AST 51, LACTATE DEHYDROGENASE 504, CRP 48.90, TOTAL PROTEIN 8.3, GLOBULIN 4.8. BLOOD AND URINE CULTURES ARE PENDING. A CHEST XRAY WAS OBTAINED AND REVEALED: No acute cardiopulmonary disease and no change from January 01, 2020 prior film. SHE IS CURRENTLY RECEIVING NS AT [facility], AZITHROMYCIN 500MG IV DAILY, FIORICET 1 TAB PO Q6H PRN, AMLODIPINE 10MG PO DAILY, DOCUSATE 200MG PO HS, LOVENOX 40MG SC DAILY, FLONASE 2 SPRAYS EACH DAILY, NORCO 5/325MG PO Q6H PRN, IBUPROFEN 800MG PO TID PRN, LISINOPRIL 5MG PO DAILY, MILK OF MAGNESIA 30ML PO QID, ZOFRAN 4MG IV Q6H PRN, K-DUR 40MEQ PO DAILY. WE WILL CONTINUE WITH CURRENT PLAN OF CARE TODAY. OTHERWISE, WE PLAN TO FOLLOW UP WITH AM LABS AND CONTINUE TO MONITOR. - Past Medical Family Social History Past Med/Fam/Surg Hx: No changes since H&P Allergies: Allergies No Known Drug Allergies Allergy (Verified 01/01/20 16:21) - Review of Systems ROS: No change since H&P - Vital Signs and I&O's Vital Signs: Temperature 97.6 F Pulse Rate [Right Radial] 104 Pulse Rate 106 Respiratory Rate 18 Blood Pressure [Right Arm] 186/89 Blood Pressure 202/119 O2 Sat by Pulse Oximetry 100 Intake and Output: Intake & Output 01/01/20 01/02/20 01/03/20 01/04/20 11:59 11:59 11:59 11:59 Intake Total / 1410 / 1410 1808 / 1808 Balance 90 / 90 1410 / 1410 1808 / 1808 - Physical Exam Oriented: Normal Eyes: Normal Ear: Normal Nose: Normal Throat: Normal Respiratory: Generalized, Diminished Cardiovascular: Normal : Normal Auscultation: Bowel Sounds: Normal Palpation: Normal Tenderness: Normal Skin: Normal, Maculopapular Psychiatric: Anxiety Affect: Anxious Speech Pattern: Clear - Laboratory and Diagnostics Result Diagrams: 01/04/20 04:50 01/04/20 04:50 Labs: 01/02/20 20:59 Urine,Clean Catch Urine Culture - Final Laboratory WBC 2.4 X10^3/uL (3.6-10.0) L 01/04/20 04:50 RBC 5.15 X10^6/uL (3.5-5.4) 01/04/20 04:50 Hgb 10.8 g/dL (12.0-16.0) L 01/04/20 04:50 Hct 34.1 % (36.0-47.0) L 01/04/20 04:50 MCV 66.2 fL (80.0-100.0) L 01/04/20 04:50 MCH 21.0 pg (27.0-34.0) L 01/04/20 04:50 MCHC 31.7 g/dL (33.0-35.0) L 01/04/20 04:50 RDW 17.9 % (11.6-16.5) H 01/04/20 04:50 Plt Count 195 X10^3/uL (150.0-450.0) 01/04/20 04:50 Plt Count Comment Adequate (ADEQUATE) 01/04/20 04:50 MPV 11.4 fL (7.4-11.0) H 01/04/20 04:50 Neut % (Auto) 55.5 % (42.0-75.0) 01/04/20 04:50 Lymph % (Auto) 34.4 % (21.0-51.0) 01/04/20 04:50 [place] % (Auto) 9.3 % (0.0-13.0) 01/04/20 04:50 Eos % (Auto) 0.0 % (0.9-2.9) L 01/04/20 04:50 Baso % (Auto) 0.8 % (0.2-1.0) 01/04/20 04:50 Neut # (Auto) 1.3 x10^3/uL (2.2-4.8) L 01/04/20 04:50 Lymph # (Auto) 0.8 X10^3/uL (1.3-2.9) L 01/04/20 04:50 [place] # (Auto) 0.2 x10^3/uL (0.3-0.8) L 01/04/20 04:50 Eos # (Auto) 0.0 x10^3/uL (0.0-0.2) 01/04/20 04:50 Baso # (Auto) 0.0 X10^3/uL (0.0-0.1) 01/04/20 04:50 Absolute Nucleated RBC 0.5 /100WBC 01/04/20 04:50 Total Counted 100 01/04/20 04:50 Neutrophils % (Manual) 72 % (39-76) 01/04/20 04:50 Lymphocytes % (Manual) 25 % (13-43) 01/04/20 04:50 Monocytes % (Manual) 3 % (4-9) L 01/04/20 04:50 Eosinophils % (Manual) 10 % (0-6) H 01/03/20 08:00 Plt Morphology Comment Normal (NORMAL) 01/04/20 04:50 RBC Morphology Abnormal (NORMAL) A 01/04/20 04:50 Hypochromasia 2+ A 01/04/20 04:50 Anisocytosis Sl 01/02/20 04:38 Microcytosis 1+ A 01/04/20 04:50 D-Dimer 1990 ng/mL (0-400) H* 01/02/20 11:15 Sample Site Right radial 01/02/20 11:08 ABG pH 7.480 (7.35-7.45) H 01/02/20 11:08 ABG pCO2 29.0 mmHg (35.0-45.0) L 01/02/20 11:08 ABG pO2 91.0 mmHg (80.0-100.0) 01/02/20 11:08 ABG HCO3 21.6 mmol/L (22-26) L 01/02/20 11:08 ABG O2 Saturation 98.0 % (90-100) 01/02/20 11:08 ABG Base Excess -1.0 mmol/L (-2.0-2.0) 01/02/20 11:08 Tristen Test Pos 01/02/20 11:08 A-a Gradient 22.0 mmHg 01/02/20 11:08 FiO2 21.0 01/02/20 11:08 Blood Gas Comments Chris well aw 01/02/20 11:08 Sodium 131 mmol/L (136-145) L 01/04/20 04:50 Corrected Sodium TNP 01/04/20 04:50 Potassium 4.4 mmol/L (3.5-5.1) 01/04/20 04:50 Chloride 99 mmol/L (98-107) 01/04/20 04:50 Carbon Dioxide 26.2 mmol/L (21-32) 01/04/20 04:50 BUN 12 mg/dL (7-18) 01/04/20 04:50 Creatinine 0.98 mg/dL (0.55-1.02) 01/04/20 04:50 Est GFR (MDRD) Af Amer > 60 (>60) 01/04/20 04:50 Est GFR (MDRD) Non-Af > 60 (>60) 01/04/20 04:50 Glucose 88 mg/dL (65-99) 01/04/20 04:50 Lactic Acid 0.9 mmol/L (0.4-2.0) 01/01/20 17:41 Calcium 8.1 mg/dL (8.5-10.1) L 01/04/20 04:50 Corrected Calcium 8.7 mg/dL (8.5-10.1) 01/04/20 04:50 Ferritin 109 ng/mL (8-252) 01/04/20 04:50 Total Bilirubin 0.20 mg/dL (0.2-1.0) 01/04/20 04:50 AST 31 Units/L (15-37) 01/04/20 04:50 ALT 35 Units/L (12-78) 01/04/20 04:50 Alkaline Phosphatase 65 Units/L (46-116) 01/04/20 04:50 Lactate Dehydrogenase 504 Units/L (81-234) H 01/03/20 08:00 C-Reactive Protein 51.90 mg/L (0-3.0) H 01/04/20 04:50 Total Protein 7.7 g/dL (6.4-8.2) 01/04/20 04:50 Albumin 3.3 g/dL (3.4-5.0) L 01/04/20 04:50 Globulin 4.4 g/dL (2.5-4.5) 01/04/20 04:50 Albumin/Globulin Ratio 0.8 Ratio (1.1-2.1) L 01/04/20 04:50 RSV Nasal Swab Negative (NEGATIVE) 01/02/20 11:18 Influenza Type A Ag Negative-presumptive (NEGATIVE) 01/02/20 11:18 Influenza Type B Ag Negative-presumptive (NEGATIVE) 01/02/20 11:18 SARS-CoV-2 (PCR) Negative (NEGATIVE) 01/01/20 20:14 S. pyogenes (TEM-PCR) Not detected (NOT DETECT) 01/02/20 11:18 - Plan (1) Fever Status: Acute Qualifiers: Fever type: unspecified Qualified Code(s): R50.9 - Fever, unspecified Plan: NS AT [facility], AZITHROMYCIN 500MG IV DAILY, FIORICET 1 TAB PO Q6H PRN, AMLODIPINE 10MG PO DAILY, DOCUSATE 200MG PO HS, LOVENOX 40MG SC DAILY, FLONASE 2 SPRAYS EACH DAILY, NORCO 5/325MG PO Q6H PRN, IBUPROFEN 800MG PO TID PRN, LISINOPRIL 5MG PO DAILY, MILK OF MAGNESIA 30ML PO QID, ZOFRAN 4MG IV Q6H PRN, K- DUR 40MEQ PO DAILY. (2) Malaise Status: Acute (3) Leukopenia Status: Acute Qualifiers: Leukopenia type: unspecified Qualified Code(s): D72.819 - Decreased white blood cell count, unspecified (4) History of 2019 novel coronavirus disease (COVID-19) Status: Acute (5) Acute hypokalemia Status: Acute Plan: POTASSIUM AND MAGNESIUM PROTOCOL, CONTINUE TO MONITOR (6) Anemia Status: Chronic Qualifiers: Anemia type: iron deficiency Iron deficiency anemia type: unspecified iron deficiency Qualified Code(s): D50.9 - Iron deficiency anemia, unspecified (7) HTN (hypertension) Status: Chronic Qualifiers: Hypertension type: essential hypertension Qualified Code(s): I10 - Essential (primary) hypertension
[2020-01-04] MEDS: NORCO 5/325 MG TAB PO PRN (10:43)
--- NOTE | 2020-01-04 10:43 | PCM.PROG ---
Progress Note - Progress Note for Day of Date of Exam: 01/04/20 - Subjective Subjective: WAS ADMITTED FOR FEVER, HX COVID-19, MALAISE, HTN, HYPOKALEMIA, ANEMIA, AND LEUKOPENIA. SHE REPORTS TESTING POSITIVE FOR COVID-19 APPROXIMATELY A MONTH AGO. SHE WAS RETESTED IN OUR OFFICE ON 12/30/19. REPEAT TEST IS NEGATIVE. RAPID TEST THAT WAS OBTAINED IN THE ER IS ALSO NEGATIVE. TODAY, SHE IS ALERT AND ORIENTED, LYING IN BED ON MORNING ROUNDS. SHE CONTINUES WITH COMPLAINTS OF WEAKNESS, NON-PRODUCTIVE COUGH, AND FEVER. ON EXAMINATION, HEART IS REGULAR IN RATE AND RHYTHM. BILATERAL LUNGS ARE NOTED WITH DIMINISHED LUNG SOUNDS THROUGHOUT. ABDOMEN IS ROUND, SOFT, AND NON-TENDER WITH NORMAL BOWEL SOUNDS NOTED IN ALL QUADRANTS. HER VITALS THIS MORNING ARE: 97.6-92-20-98%NC-164/88. LABS WERE OBTAINED. ABNORMAL LAB VALUES INCLUDE THE FOLLOWING: WBC 2.4, HGB 10.8, HCT 34.1, SODIUM 131, CALCIUM 8.1, CRP 51.90, ALBUMIN 3.3. BLOOD AND URINE CULTURES ARE PENDING. A CHEST XRAY WAS OBTAINED AND REVEALED: No significant abnormality identified. SHE IS CURRENTLY RECEIVING NS AT [facility], AZITHROMYCIN 500MG IV DAILY, FIORICET 1 TAB PO Q6H PRN, AMLODIPINE 10MG PO DAILY, DOCUSATE 200MG PO HS, LOVENOX 40MG SC DAILY, FLONASE 2 SPRAYS EACH DAILY, NORCO 5/325MG PO Q6H PRN, IBUPROFEN 800MG PO TID PRN, LISINOPRIL 5MG PO DAILY, MILK OF MAGNESIA 30ML PO QID, ZOFRAN 4MG IV Q6H PRN, K-DUR 40MEQ PO DAILY. WE WILL CONTINUE WITH CURRENT PLAN OF CARE TODAY. OTHERWISE, WE PLAN TO FOLLOW UP WITH AM LABS AND CONTINUE TO MONITOR. - Past Medical Family Social History Past Med/Fam/Surg Hx: No changes since H&P Allergies: Allergies No Known Drug Allergies Allergy (Verified 01/01/20 16:21) - Review of Systems ROS: No change since H&P - Vital Signs and I&O's Vital Signs: Temperature 97.6 F Pulse Rate [Right Radial] 104 Pulse Rate 106 Respiratory Rate 18 Blood Pressure [Right Arm] 186/89 Blood Pressure 202/119 O2 Sat by Pulse Oximetry 100 Intake and Output: Intake & Output 01/01/20 01/02/20 01/03/20 01/04/20 11:59 11:59 11:59 11:59 Intake Total 1410 / 1410 1808 / 1808 Balance 1410 / 1410 1808 / 1808 - Physical Exam Oriented: Normal Eyes: Normal Ear: Normal Nose: Normal Throat: Normal Respiratory: Generalized, Diminished Cardiovascular: Normal : Normal Auscultation: Bowel Sounds: Normal Palpation: Normal Tenderness: Normal Skin: Normal, Maculopapular Psychiatric: Anxiety Affect: Anxious Speech Pattern: Clear - Laboratory and Diagnostics Result Diagrams: 01/04/20 04:50 01/04/20 04:50 Labs: 01/02/20 20:59 Urine,Clean Catch Urine Culture - Final Laboratory WBC 2.4 X10^3/uL (3.6-10.0) L 01/04/20 04:50 RBC 5.15 X10^6/uL (3.5-5.4) 01/04/20 04:50 Hgb 10.8 g/dL (12.0-16.0) L 01/04/20 04:50 Hct 34.1 % (36.0-47.0) L 01/04/20 04:50 MCV 66.2 fL (80.0-100.0) L 01/04/20 04:50 MCH 21.0 pg (27.0-34.0) L 01/04/20 04:50 MCHC 31.7 g/dL (33.0-35.0) L 01/04/20 04:50 RDW 17.9 % (11.6-16.5) H 01/04/20 04:50 Plt Count 195 X10^3/uL (150.0-450.0) 01/04/20 04:50 Plt Count Comment Adequate (ADEQUATE) 01/04/20 04:50 MPV 11.4 fL (7.4-11.0) H 01/04/20 04:50 Neut % (Auto) 55.5 % (42.0-75.0) 01/04/20 04:50 Lymph % (Auto) 34.4 % (21.0-51.0) 01/04/20 04:50 [place] % (Auto) 9.3 % (0.0-13.0) 01/04/20 04:50 Eos % (Auto) 0.0 % (0.9-2.9) L 01/04/20 04:50 Baso % (Auto) 0.8 % (0.2-1.0) 01/04/20 04:50 Neut # (Auto) 1.3 x10^3/uL (2.2-4.8) L 01/04/20 04:50 Lymph # (Auto) 0.8 X10^3/uL (1.3-2.9) L 01/04/20 04:50 [place] # (Auto) 0.2 x10^3/uL (0.3-0.8) L 01/04/20 04:50 Eos # (Auto) 0.0 x10^3/uL (0.0-0.2) 01/04/20 04:50 Baso # (Auto) 0.0 X10^3/uL (0.0-0.1) 01/04/20 04:50 Absolute Nucleated RBC 0.5 /100WBC 01/04/20 04:50 Total Counted 100 01/04/20 04:50 Neutrophils % (Manual) 72 % (39-76) 01/04/20 04:50 Lymphocytes % (Manual) 25 % (13-43) 01/04/20 04:50 Monocytes % (Manual) 3 % (4-9) L 01/04/20 04:50 Eosinophils % (Manual) 10 % (0-6) H 01/03/20 08:00 Plt Morphology Comment Normal (NORMAL) 01/04/20 04:50 RBC Morphology Abnormal (NORMAL) A 01/04/20 04:50 Hypochromasia 2+ A 01/04/20 04:50 Anisocytosis Sl 01/02/20 04:38 Microcytosis 1+ A 01/04/20 04:50 D-Dimer 1990 ng/mL (0-400) H* 01/02/20 11:15 Sample Site Right radial 01/02/20 11:08 ABG pH 7.480 (7.35-7.45) H 01/02/20 11:08 ABG pCO2 29.0 mmHg (35.0-45.0) L 01/02/20 11:08 ABG pO2 91.0 mmHg (80.0-100.0) 01/02/20 11:08 ABG HCO3 21.6 mmol/L (22-26) L 01/02/20 11:08 ABG O2 Saturation 98.0 % (90-100) 01/02/20 11:08 ABG Base Excess -1.0 mmol/L (-2.0-2.0) 01/02/20 11:08 Tristen Test Pos 01/02/20 11:08 A-a Gradient 22.0 mmHg 01/02/20 11:08 FiO2 21.0 01/02/20 11:08 Blood Gas Comments Chris well aw 01/02/20 11:08 Sodium 131 mmol/L (136-145) L 01/04/20 04:50 Corrected Sodium TNP 01/04/20 04:50 Potassium 4.4 mmol/L (3.5-5.1) 01/04/20 04:50 Chloride 99 mmol/L (98-107) 01/04/20 04:50 Carbon Dioxide 26.2 mmol/L (21-32) 01/04/20 04:50 BUN 12 mg/dL (7-18) 01/04/20 04:50 Creatinine 0.98 mg/dL (0.55-1.02) 01/04/20 04:50 Est GFR (MDRD) Af Amer > 60 (>60) 01/04/20 04:50 Est GFR (MDRD) Non-Af > 60 (>60) 01/04/20 04:50 Glucose 88 mg/dL (65-99) 01/04/20 04:50 Lactic Acid 0.9 mmol/L (0.4-2.0) 01/01/20 17:41 Calcium 8.1 mg/dL (8.5-10.1) L 01/04/20 04:50 Corrected Calcium 8.7 mg/dL (8.5-10.1) 01/04/20 04:50 Ferritin 109 ng/mL (8-252) 01/04/20 04:50 Total Bilirubin 0.20 mg/dL (0.2-1.0) 01/04/20 04:50 AST 31 Units/L (15-37) 01/04/20 04:50 ALT 35 Units/L (12-78) 01/04/20 04:50 Alkaline Phosphatase 65 Units/L (46-116) 01/04/20 04:50 Lactate Dehydrogenase 504 Units/L (81-234) H 01/03/20 08:00 C-Reactive Protein 51.90 mg/L (0-3.0) H 01/04/20 04:50 Total Protein 7.7 g/dL (6.4-8.2) 01/04/20 04:50 Albumin 3.3 g/dL (3.4-5.0) L 01/04/20 04:50 Globulin 4.4 g/dL (2.5-4.5) 01/04/20 04:50 Albumin/Globulin Ratio 0.8 Ratio (1.1-2.1) L 01/04/20 04:50 RSV Nasal Swab Negative (NEGATIVE) 01/02/20 11:18 Influenza Type A Ag Negative-presumptive (NEGATIVE) 01/02/20 11:18 Influenza Type B Ag Negative-presumptive (NEGATIVE) 01/02/20 11:18 SARS-CoV-2 (PCR) Negative (NEGATIVE) 01/01/20 20:14 S. pyogenes (TEM-PCR) Not detected (NOT DETECT) 01/02/20 11:18 - Plan (1) Fever Status: Acute Qualifiers: Fever type: unspecified Qualified Code(s): R50.9 - Fever, unspecified Plan: NS AT [facility], AZITHROMYCIN 500MG IV DAILY, FIORICET 1 TAB PO Q6H PRN, AMLODIPINE 10MG PO DAILY, DOCUSATE 200MG PO HS, LOVENOX 40MG SC DAILY, FLONASE 2 SPRAYS EACH DAILY, NORCO 5/325MG PO Q6H PRN, IBUPROFEN 800MG PO TID PRN, LISINOPRIL 5MG PO DAILY, MILK OF MAGNESIA 30ML PO QID, ZOFRAN 4MG IV Q6H PRN, K- DUR 40MEQ PO DAILY. (2) Malaise Status: Acute (3) Leukopenia Status: Acute Qualifiers: Leukopenia type: unspecified Qualified Code(s): D72.819 - Decreased white blood cell count, unspecified (4) History of 2019 novel coronavirus disease (COVID-19) Status: Acute (5) Acute hypokalemia Status: Acute Plan: POTASSIUM AND MAGNESIUM PROTOCOL, CONTINUE TO MONITOR (6) Anemia Status: Chronic Qualifiers: Anemia type: iron deficiency Iron deficiency anemia type: unspecified iron deficiency Qualified Code(s): D50.9 - Iron deficiency anemia, unspecified (7) HTN (hypertension) Status: Chronic Qualifiers: Hypertension type: essential hypertension Qualified Code(s): I10 - Essential (primary) hypertension
[2020-01-04] MEDS: FIORICET TAB PO PRN ×2 (14:15→23:36)
[2020-01-04] MEDS: MOTRIN TAB 800 MG PO PRN (16:10)
[2020-01-04] MEDS: COLACE CAP 100 MG PO SCH (20:49)
--- NOTE | 2020-01-05 04:41 | RAD ---
HISTORYshortness of breathSTUDYCHEST, 1 [id number]/02/2020FINDINGSThe trachea is midline. The cardiac silhouette is unremarkable . The lungs are clear without focal infiltrate or effusion. No pneumothorax. The bony thorax is unremarkable.IMPRESSIONNo acute cardiopulmonary disease.Electronically signed by: Rhett Dyer (Jan 05, 2020 04:40:06)
[2020-01-05 05:43] LABS: BASOPHILS % (AUTO) 0.7 % (0.2-1.0); HEMATOCRIT 35.6 % (36.0-47.0); HEMOGLOBIN 11.5 g/dL (12.0-16.0); LYMPHOCYTES # (AUTO) 1.1 X10^3/uL (1.3-2.9); LYMPHOCYTES % (AUTO) 56.4 % (21.0-51.0); MEAN CORPUSCULAR HEMOGLOBIN 21.3 pg (27.0-34.0); MEAN CORPUSCULAR HGB CONC 32.1 g/dL (33.0-35.0); MEAN CORPUSCULAR VOLUME 66.3 fL (80.0-100.0); MEAN PLATELET VOLUME 9.5 fL (7.4-11.0); MONOCYTES # (AUTO) 0.2 x10^3/uL (0.3-0.8); MONOCYTES % (AUTO) 8.6 % (0.0-13.0); NEUTROPHILS # (AUTO) 0.6 x10^3/uL (2.2-4.8); NEUTROPHILS % (AUTO) 34.3 % (42.0-75.0); PLATELET COUNT 176 X10^3/uL (150.0-450.0); RED BLOOD COUNT 5.38 X10^6/uL (3.5-5.4); RED CELL DISTRIBUTION WIDTH 17.7 % (11.6-16.5)
[2020-01-05 05:53] LABS: ALANINE AMINOTRANSFERASE 33 Units/L (12-78); ALBUMIN 3.3 g/dL (3.4-5.0); ALKALINE PHOSPHATASE 62 Units/L (46-116); ASPARTATE AMINO TRANSFERASE 39 Units/L (15-37); BLOOD UREA NITROGEN 10 mg/dL (7-18); CALCIUM 8.1 mg/dL (8.5-10.1); CARBON DIOXIDE 28.4 mmol/L (21-32); CHLORIDE 98 mmol/L (98-107); COR CA(FOR HYPOALB) 8.7 mg/dL (8.5-10.1); CREATININE 0.82 mg/dL (0.55-1.02); SODIUM 131 mmol/L (136-145); eGFR NON BLACK RACES > 60 (>60)
[2020-01-05 06:29] LABS: HYPOCHROMASIA 2+; MICROCYTOSIS 1+; PLATELET MORPHOLOGY COMMENT NORMAL (NORMAL); WHITE BLOOD COUNT 1.9 X10^3/uL (3.6-10.0)
[2020-01-05 06:30] LABS: ANISOCYTOSIS SLIGHT
[2020-01-05] MEDS: K-DUR TAB 20 MEQ PO SCH (09:08)
[2020-01-05] MEDS: FIORICET TAB PO PRN (09:08)
[2020-01-05] MEDS: ZITHROMAX INJ 500 MG VIAL 500 MG in NS 250 ML IV 250 ML IV SCH (09:08)
[2020-01-05] MEDS: NORVASC TAB 10 MG PO SCH (09:09)
[2020-01-05] MEDS: LOVENOX INJ 40 MG SYR SC SCH (09:09)
[2020-01-05] MEDS: ZESTRIL TAB 5 MG PO SCH (09:09)
[2020-01-05] MEDS: MILK OF MAGNESIA PO SCH (09:11)
[2020-01-05] MEDS: FLONASE NASAL SPRAY ENOSTRIL SCH (09:11)
[2020-01-05 11:00] LABS: ABG BASE EXCESS 0.8 mmol/L (-2.0-2.0)
[2020-01-05] MEDS: TORADOL 30 MG VIAL IVP SCH ×2 (11:00→18:39)
[2020-01-05] MEDS: COLACE CAP 100 MG PO SCH (20:47)
--- NOTE | 2020-01-05 21:37 | PCM.PROG ---
Progress Note - Progress Note for Day of Date of Exam: 01/05/20 - Subjective Subjective: WAS ADMITTED FOR FEVER, HX COVID-19, MALAISE, HTN, HYPOKALEMIA, ANEMIA, AND LEUKOPENIA. SHE REPORTS TESTING POSITIVE FOR COVID-19 APPROXIMATELY A MONTH AGO. SHE WAS RETESTED IN OUR OFFICE ON 12/30/19. REPEAT TEST IS NEGATIVE. RAPID TEST THAT WAS OBTAINED IN THE ER IS ALSO NEGATIVE. TODAY, SHE IS ALERT AND ORIENTED, LYING IN BED ON MORNING ROUNDS. SHE CONTINUES WITH COMPLAINTS OF WEAKNESS, SHORTNESS OF BREATH, AND HEADACHE. SHE CONTINUES TO RUN A FEVER. ON EXAMINATION, HEART IS REGULAR IN RATE AND RHYTHM. BILATERAL LUNGS ARE NOTED WITH DIMINISHED LUNG SOUNDS THROUGHOUT. ABDOMEN IS ROUND, SOFT, AND NON-TENDER WITH NORMAL BOWEL SOUNDS NOTED IN ALL QUADRANTS. HER VITALS THIS MORNING ARE99.4-88-18-100%-134/79. LABS WERE OBTAINED. ABNORMAL LAB VALUES INCLUDE THE FOLLOWING: WBC 1.9, HGB 11.5, HCT 35.6, SODIUM 131, CALCIUM 8.1, AST 39, CRP 44.50, ALBUMIN 3.3, GLOBULIN 4.7. BLOOD AND URINE CULTURES ARE PENDING. A CHEST XRAY WAS OBTAINED AND REVEALED: NO ACUTE CARDIOPULMONARY DISEASE. SHE IS CURRENTLY RECEIVING NS AT [facility], AZITHROMYCIN 500MG IV DAILY, FIORICET 1 TAB PO Q6H PRN, AMLODIPINE 10MG PO DAILY, DOCUSATE 200MG PO HS, LOVENOX 40MG SC DAILY, FLONASE 2 SPRAYS EACH DAILY, NORCO 5/325MG PO Q6H PRN, LISINOPRIL 5MG PO DAILY, MILK OF MAGNESIA 30ML PO QID, ZOFRAN 4MG IV Q6H PRN, K-DUR 40MEQ PO DAILY. WE WILL CONTINUE WITH CURRENT PLAN OF CARE TODAY AND ADD TORADOL 30MG IV Q8H. WE WILL ORDER AND ABG AND COVID-19 ANTIBODY. OTHERWISE, WE PLAN TO FOLLOW UP WITH AM LABS AND CONTINUE TO MONITOR. - Past Medical Family Social History Past Med/Fam/Surg Hx: No changes since H&P Allergies: Allergies No Known Drug Allergies Allergy (Verified 01/01/20 16:21) - Review of Systems ROS: No change since H&P - Vital Signs and I&O's Vital Signs: Temperature 99.2 F Pulse Rate [Right Radial] 88 Pulse Rate 106 Respiratory Rate 19 Blood Pressure [Left Arm] 163/92 Blood Pressure [Right Arm] 136/76 Blood Pressure 202/119 O2 Sat by Pulse Oximetry 99 Intake and Output: Intake & Output 01/03/20 01/04/20 01/05/20 01/06/20 11:59 11:59 11:59 11:59 Intake Total 1410 / 1410 1808 / 1808 1486 / 1486 580 / 580 Balance 1410 / 1410 1808 / 1808 1486 / 1486 580 / 580 - Physical Exam Oriented: Normal Eyes: Normal Ear: Normal Nose: Normal Throat: Normal Respiratory: Generalized, Diminished Cardiovascular: Normal : Normal Auscultation: Bowel Sounds: Normal Tenderness: Normal Skin: Normal, Maculopapular Psychiatric: Anxiety Affect: Anxious Speech Pattern: Clear, Appropriate - Laboratory and Diagnostics Result Diagrams: 01/05/20 05:22 01/05/20 05:22 Labs: 01/02/20 11:40 Blood Blood Culture - Preliminary 01/02/20 11:15 Blood Blood Culture - Preliminary 01/02/20 20:59 Urine,Clean Catch Urine Culture - Final Laboratory WBC 1.9 X10^3/uL (3.6-10.0) L* 01/05/20 05:22 RBC 5.38 X10^6/uL (3.5-5.4) 01/05/20 05:22 Hgb 11.5 g/dL (12.0-16.0) L 01/05/20 05:22 Hct 35.6 % (36.0-47.0) L 01/05/20 05:22 MCV 66.3 fL (80.0-100.0) L 01/05/20 05:22 MCH 21.3 pg (27.0-34.0) L 01/05/20 05:22 MCHC 32.1 g/dL (33.0-35.0) L 01/05/20 05:22 RDW 17.7 % (11.6-16.5) H 01/05/20 05:22 Plt Count 176 X10^3/uL (150.0-450.0) 01/05/20 05:22 Plt Count Comment Adequate (ADEQUATE) 01/05/20 05:22 MPV 9.5 fL (7.4-11.0) 01/05/20 05:22 Neut % (Auto) 34.3 % (42.0-75.0) L 01/05/20 05:22 Lymph % (Auto) 56.4 % (21.0-51.0) H 01/05/20 05:22 [place] % (Auto) 8.6 % (0.0-13.0) 01/05/20 05:22 Eos % (Auto) 0.0 % (0.9-2.9) L 01/05/20 05:22 Baso % (Auto) 0.7 % (0.2-1.0) 01/05/20 05:22 Neut # (Auto) 0.6 x10^3/uL (2.2-4.8) L 01/05/20 05:22 Lymph # (Auto) 1.1 X10^3/uL (1.3-2.9) L 01/05/20 05:22 [place] # (Auto) 0.2 x10^3/uL (0.3-0.8) L 01/05/20 05:22 Eos # (Auto) 0.0 x10^3/uL (0.0-0.2) 01/05/20 05:22 Baso # (Auto) 0.0 X10^3/uL (0.0-0.1) 01/05/20 05:22 Absolute Nucleated RBC 0.2 /100WBC 01/05/20 05:22 Total Counted 100 01/05/20 05:22 Neutrophils % (Manual) 36 % (39-76) L 01/05/20 05:22 Lymphocytes % (Manual) 48 % (13-43) H 01/05/20 05:22 Monocytes % (Manual) 16 % (4-9) H 01/05/20 05:22 Eosinophils % (Manual) 10 % (0-6) H 01/03/20 08:00 Plt Morphology Comment Normal (NORMAL) 01/05/20 05:22 RBC Morphology Abnormal (NORMAL) A 01/05/20 05:22 Hypochromasia 2+ A 01/05/20 05:22 Anisocytosis Slight A 01/05/20 05:22 Microcytosis 1+ A 01/05/20 05:22 D-Dimer 1990 ng/mL (0-400) H* 01/02/20 11:15 Sample Site Lb 01/05/20 10:50 ABG pH 7.470 (7.35-7.45) H 01/05/20 10:50 ABG pCO2 33.0 mmHg (35.0-45.0) L 01/05/20 10:50 ABG pO2 97.0 mmHg (80.0-100.0) 01/05/20 10:50 ABG HCO3 24.0 mmol/L (22-26) 01/05/20 10:50 ABG O2 Saturation 98.0 % (90-100) 01/05/20 10:50 ABG Base Excess 0.8 mmol/L (-2.0-2.0) 01/05/20 10:50 Tristen Test Na 01/05/20 10:50 A-a Gradient 11.0 mmHg 01/05/20 10:50 FiO2 21.0 01/05/20 10:50 Blood Gas Comments Pt jennie well. cdn 01/05/20 10:50 Sodium 131 mmol/L (136-145) L 01/05/20 05:22 Corrected Sodium TNP 01/05/20 05:22 Potassium 4.1 mmol/L (3.5-5.1) 01/05/20 05:22 Chloride 98 mmol/L (98-107) 01/05/20 05:22 Carbon Dioxide 28.4 mmol/L (21-32) 01/05/20 05:22 BUN 10 mg/dL (7-18) 01/05/20 05:22 Creatinine 0.82 mg/dL (0.55-1.02) 01/05/20 05:22 Est GFR (MDRD) Af Amer > 60 (>60) 01/05/20 05:22 Est GFR (MDRD) Non-Af > 60 (>60) 01/05/20 05:22 Glucose 83 mg/dL (65-99) 01/05/20 05:22 Lactic Acid 0.9 mmol/L (0.4-2.0) 01/01/20 17:41 Calcium 8.1 mg/dL (8.5-10.1) L 01/05/20 05:22 Corrected Calcium 8.7 mg/dL (8.5-10.1) 01/05/20 05:22 Ferritin 150 ng/mL (8-252) 01/05/20 05:22 Total Bilirubin 0.20 mg/dL (0.2-1.0) 01/05/20 05:22 AST 39 Units/L (15-37) H 01/05/20 05:22 ALT 33 Units/L (12-78) 01/05/20 05:22 Alkaline Phosphatase 62 Units/L (46-116) 01/05/20 05:22 Lactate Dehydrogenase 504 Units/L (81-234) H 01/03/20 08:00 C-Reactive Protein 44.50 mg/L (0-3.0) H 01/05/20 05:22 Total Protein 8.0 g/dL (6.4-8.2) 01/05/20 05:22 Albumin 3.3 g/dL (3.4-5.0) L 01/05/20 05:22 Globulin 4.7 g/dL (2.5-4.5) H 01/05/20 05:22 Albumin/Globulin Ratio 0.7 Ratio (1.1-2.1) L 01/05/20 05:22 RSV Nasal Swab Negative (NEGATIVE) 01/02/20 11:18 Influenza Type A Ag Negative-presumptive (NEGATIVE) 01/02/20 11:18 Influenza Type B Ag Negative-presumptive (NEGATIVE) 01/02/20 11:18 SARS-CoV-2 (PCR) Negative (NEGATIVE) 01/01/20 20:14 S. pyogenes (TEM-PCR) Not detected (NOT DETECT) 01/02/20 11:18 Miscellaneous Test Covid 19 01/02/20 11:18 - Plan (1) Fever Status: Acute Qualifiers: Fever type: unspecified Qualified Code(s): R50.9 - Fever, unspecified Plan: NS AT [facility], AZITHROMYCIN 500MG IV DAILY, FIORICET 1 TAB PO Q6H PRN, AMLODIPINE 10MG PO DAILY, DOCUSATE 200MG PO HS, LOVENOX 40MG SC DAILY, FLONASE 2 SPRAYS EACH DAILY, NORCO 5/325MG PO Q6H PRN, IBUPROFEN 800MG PO TID PRN, LISINOPRIL 5MG PO DAILY, MILK OF MAGNESIA 30ML PO QID, ZOFRAN 4MG IV Q6H PRN, K- DUR 40MEQ PO DAILY. (2) Malaise Status: Acute (3) Leukopenia Status: Acute Qualifiers: Leukopenia type: unspecified Qualified Code(s): D72.819 - Decreased white blood cell count, unspecified (4) History of 2019 novel coronavirus disease (COVID-19) Status: Acute (5) Acute hypokalemia Status: Resolved Plan: POTASSIUM AND MAGNESIUM PROTOCOL, CONTINUE TO MONITOR (6) Anemia Status: Chronic Qualifiers: Anemia type: iron deficiency Iron deficiency anemia type: unspecified iron deficiency Qualified Code(s): D50.9 - Iron deficiency anemia, unspecified (7) HTN (hypertension) Status: Chronic Qualifiers: Hypertension type: essential hypertension Qualified Code(s): I10 - Essential (primary) hypertension (8) Depression Status: Chronic Qualifiers: Depression Type: unspecified Qualified Code(s): F32.9 - Major depressive disorder, single episode, unspecified Plan: CONTINUE HOME MEDS, CONTINUE TO MONITOR (9) Headache Status: Acute Qualifiers: Headache type: unspecified Qualified Code(s): G44.89 - Other headache syndrome Plan: FIORCET 1 TAB PO Q6H PRN, TORADOL 30MG IV Q8H, CONTINUE TO MONITOR
[2020-01-06] MEDS: TORADOL 30 MG VIAL IVP SCH ×3 (02:26→18:03)
[2020-01-06 05:15] LABS: BASOPHILS % (AUTO) 0.5 % (0.2-1.0); EOSINOPHILS % (AUTO) 0.1 % (0.9-2.9); HEMATOCRIT 34.8 % (36.0-47.0); HEMOGLOBIN 11.2 g/dL (12.0-16.0); LYMPHOCYTES # (AUTO) 0.9 X10^3/uL (1.3-2.9); LYMPHOCYTES % (AUTO) 45.5 % (21.0-51.0); MEAN CORPUSCULAR HEMOGLOBIN 21.2 pg (27.0-34.0); MEAN CORPUSCULAR HGB CONC 32.2 g/dL (33.0-35.0); MEAN CORPUSCULAR VOLUME 65.9 fL (80.0-100.0); MEAN PLATELET VOLUME 10.3 fL (7.4-11.0); MONOCYTES # (AUTO) 0.2 x10^3/uL (0.3-0.8); MONOCYTES % (AUTO) 10.3 % (0.0-13.0); NEUTROPHILS # (AUTO) 0.9 x10^3/uL (2.2-4.8); NEUTROPHILS % (AUTO) 43.6 % (42.0-75.0); PLATELET COUNT 192 X10^3/uL (150.0-450.0); RED BLOOD COUNT 5.29 X10^6/uL (3.5-5.4); RED CELL DISTRIBUTION WIDTH 17.8 % (11.6-16.5)
[2020-01-06 05:31] LABS: ALANINE AMINOTRANSFERASE 39 Units/L (12-78); ALBUMIN 3.4 g/dL (3.4-5.0); ALKALINE PHOSPHATASE 60 Units/L (46-116); ASPARTATE AMINO TRANSFERASE 46 Units/L (15-37); BLOOD UREA NITROGEN 8 mg/dL (7-18); CALCIUM 8.2 mg/dL (8.5-10.1); CARBON DIOXIDE 26.7 mmol/L (21-32); CHLORIDE 97 mmol/L (98-107); CREATININE 0.73 mg/dL (0.55-1.02); SODIUM 132 mmol/L (136-145); TOTAL PROTEIN 8.3 g/dL (6.4-8.2); eGFR NON BLACK RACES > 60 (>60)
--- NOTE | 2020-01-06 06:05 | RAD ---
HISTORYShortness of breathSTUDYCHEST, 1 [id number]/03/2020FINDINGSMild hypo inflation accentuates the heart size which is likely upper limits normal in size. The niesha are normal. The lung jacob are clear. No pleural effusions are identified. Bony thorax is unremarkable.IMPRESSIONThe lungs clearElectronically signed by: HAO HAHN (Jan 06, 2020 06:04:26)
[2020-01-06 06:22] LABS: GIANT PLATELET FEW; HYPOCHROMASIA 2+; MICROCYTOSIS 1+; PLATELET MORPHOLOGY COMMENT NORMAL (NORMAL)
[2020-01-06] MEDS: FLONASE NASAL SPRAY ENOSTRIL SCH (08:45)
[2020-01-06] MEDS: K-DUR TAB 20 MEQ PO SCH (08:46)
[2020-01-06] MEDS: LOVENOX INJ 40 MG SYR SC SCH (08:49)
[2020-01-06] MEDS: NORVASC TAB 10 MG PO SCH (08:54)
[2020-01-06] MEDS: ZESTRIL TAB 5 MG PO SCH (08:55)
[2020-01-06] MEDS: ZITHROMAX INJ 500 MG VIAL 500 MG in NS 250 ML IV 250 ML IV SCH (08:55)
[2020-01-06] MEDS: MILK OF MAGNESIA PO SCH (10:00)
[2020-01-06] MEDS: COLACE CAP 100 MG PO SCH (21:25)
[2020-01-07] MEDS: TORADOL 30 MG VIAL IVP SCH ×2 (04:53→10:02)
[2020-01-07 05:16] LABS: BASOPHILS % (AUTO) 1.1 % (0.2-1.0); EOSINOPHILS % (AUTO) 0.3 % (0.9-2.9); HEMATOCRIT 33.4 % (36.0-47.0); HEMOGLOBIN 10.6 g/dL (12.0-16.0); LYMPHOCYTES % (AUTO) 52.8 % (21.0-51.0); MEAN CORPUSCULAR HEMOGLOBIN 20.9 pg (27.0-34.0); MEAN CORPUSCULAR HGB CONC 31.8 g/dL (33.0-35.0); MEAN CORPUSCULAR VOLUME 65.8 fL (80.0-100.0); MEAN PLATELET VOLUME 10.7 fL (7.4-11.0); MONOCYTES # (AUTO) 0.3 x10^3/uL (0.3-0.8); MONOCYTES % (AUTO) 13.7 % (0.0-13.0); NEUTROPHILS # (AUTO) 0.6 x10^3/uL (2.2-4.8); NEUTROPHILS % (AUTO) 32.1 % (42.0-75.0); PLATELET COUNT 221 X10^3/uL (150.0-450.0); RED BLOOD COUNT 5.08 X10^6/uL (3.5-5.4); RED CELL DISTRIBUTION WIDTH 17.3 % (11.6-16.5)
[2020-01-07 05:20] LABS: ALANINE AMINOTRANSFERASE 48 Units/L (12-78); ALBUMIN 3.3 g/dL (3.4-5.0); ALKALINE PHOSPHATASE 62 Units/L (46-116); ASPARTATE AMINO TRANSFERASE 51 Units/L (15-37); BLOOD UREA NITROGEN 12 mg/dL (7-18); CALCIUM 8.1 mg/dL (8.5-10.1); CARBON DIOXIDE 28.1 mmol/L (21-32); CHLORIDE 99 mmol/L (98-107); COR CA(FOR HYPOALB) 8.7 mg/dL (8.5-10.1); LACTATE DEHYDROGENASE 564 Units/L (81-234); SODIUM 133 mmol/L (136-145); TOTAL PROTEIN 8.1 g/dL (6.4-8.2); eGFR NON BLACK RACES > 60 (>60)
[2020-01-07 06:02] LABS: WHITE BLOOD COUNT 1.8 X10^3/uL (3.6-10.0)
[2020-01-07 06:03] LABS: HYPOCHROMASIA 2+; MICROCYTOSIS 1+; OVALOCYTES PRESENT; PLATELET MORPHOLOGY COMMENT NORMAL (NORMAL)
--- NOTE | 2020-01-07 06:21 | RAD ---
HISTORYSOBSTUDYCHEST, 1 [id number]/04/2020 allFINDINGSThe trachea is midline. The cardiac silhouette is unremarkable . The lungs are clear without focal infiltrate or effusion. The bony thorax is unremarkable.IMPRESSIONNo acute cardiopulmonary disease.Electronically signed by: Rhett Dyer (Jan 07, 2020 06:20:12)
[2020-01-07] MEDS: ZESTRIL TAB 5 MG PO SCH (08:40)
[2020-01-07] MEDS: K-DUR TAB 20 MEQ PO SCH (08:40)
[2020-01-07] MEDS: ZITHROMAX INJ 500 MG VIAL 500 MG in NS 250 ML IV 250 ML IV SCH (08:40)
[2020-01-07] MEDS: NORVASC TAB 10 MG PO SCH (08:40)
[2020-01-07] MEDS: LOVENOX INJ 40 MG SYR SC SCH (08:41)
[2020-01-07] MEDS: MILK OF MAGNESIA PO SCH (08:42)
[2020-01-07] MEDS: FLONASE NASAL SPRAY ENOSTRIL SCH (08:45)
[2020-01-07 10:01] VITALS: BP 128/82
== END 2020-01-07 11:30 | disposition home or self-care (01) | DRG 641 ==
LOC: ICU 16:20 → ER 16:20 → ICU 22:45 → MED/SURG 01-06 17:35
PROVIDERS: ADMIT Internal Medicine; ATTEND Internal Medicine
DX: D50.9 Iron deficiency anemia, unspecified; D72.819 Decreased white blood cell count, unspecified; R30.0 Dysuria; R50.9 Fever, unspecified; Z01.84 Encounter for antibody response examination; R51 Headache; Z86.19 Personal history of other infectious and parasitic diseases; Z11.59 Encounter for screening for other viral diseases; I95.9 Hypotension, unspecified; E87.6 Hypokalemia; I10 Essential (primary) hypertension
CPT/HCPCS: 36415; 36600; 71010; 71020; 71045; 71046; 80053; 82728; 82803; 83605; 83615; 85025; 85378; 86140; 87040; 87086; 87400; 87420; 87635; 87651; 87804; 96365; 96367; 96374; 96375; 99284; A4216; A4222; G0378; J0456; J1650; J1885; J2405; J3490; J7030; J7050